=== PATIENT | female | born 1955 | race Caucasian/White ===

== ENCOUNTER → 2016-09-20 | Outpatient (CLI) | payer BC ==
[~2016-09-20] MED LIST: AUGMENTIN 875-1 EACH PO; INDOMETHACIN 2525 MG PO; SINGULAIR 10 MG10 M1 PO; TOPAMAX 100 MG100 MG PO; ZYRTEC 10 MG TA10 MG PO
== END ==
LOC: RAD 10:03
DX: R06.02 Shortness of breath (principal)